=== PATIENT | female | born 1955 | race Asian ===

== ENCOUNTER → 2022-04-09 11:03 | Outpatient (CLI) | payer MEDICARE, SELFPAY ==
[2022-04-09 12:32] LABS: COVID19 -Nasal RAPID Negative (Negative)
== END ==
PROVIDERS: PCP Physician Assistant Medical; Visit Provider Surgery
DX: Z01.812 Encounter for preprocedural laboratory examination (principal); Z20.822 Contact with and (suspected) exposure to COVID-19
CPT/HCPCS: 87635; C9803

== ENCOUNTER 2022-04-12 11:47 | Day surgery (SDC) | payer MEDICARE, SELFPAY ==
--- NOTE | 2022-04-12 | PATH_ITS ---
[facility] Accession Number: [id number] . 01 Material submitted: . rectum - RECTUM MASS BIOPSY . 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 No lymphovascular or perineural invasion identified. No loss of mismatch repair proteins by immunohistochemical technique. See comment. MRV 04/16/2022 1430 Local . 01 Comment: Immunohistochemical staining for markers of microsatellite instability (MSI) shows no loss of MLH1, MSH2, MSH6, or PMS2, demonstrating no immunophenotypic evidence of underlying DNA mismatch repair gene mutation. Controls stain appropriately. If clinical concern warrants, additional testing by PCR for MSI could be considered for further evaluation. . As part of ongoing director of quality control, this case is also reviewed by Drs. Bethea and Felicity, who concur with the given interpretation. . Findings were called to Ms Magdaleno, medical radiation tech to , on 04/15/22 at 1630 hours. . 01 Electronically signed: . Patricia Montoya MD, Pathologist NPI- [id number] . 01 Gross description: . RECTUM MASS BIOPSY: Received in formalin are 3 fragment(s) of burgos, soft tissue measuring 0.3 x 0.3 x 0.2 cm to 0.2 x 0.2 x 0.1 cm submitted entirely in 1 cassette(s) /QBJ 04/14/2022 1028 Local . 01 Pathologist provided ICD-10: C20 . 01 CPT . 345957, P02317, Q16663 Specimen Comment: A courtesy copy of this report has been sent to [phone] Performed at: 01 [facility] [address] [place] [address], [place], [place] [id number] MD Erik Blveins MD Phone: [phone]
[2022-04-12 12:43] VITALS: BP 143/84; PULSE 96; RESP 16; TEMP 36.7; O2SAT 100; BMI 27.2
[2022-04-12] MEDS: SODIUM CHLORIDE 0.9% 1,000 ML 84 ML IV (13:07)
[2022-04-12 13:15] VITALS: BMI 27.2
--- NOTE | 2022-04-12 14:36 | PM.HP.1 ---
History of Present Illness History of Present Illness Date Patient Seen: 04/12/22 Time Patient Seen: 14:36 Chief complaint: Colonoscopy Narrative: I reviewed Dr. Dowd recent clinic note from February 02. No significant changes Patient History Medical History Rectal bleeding Family & Social History Social History: household members spouse Tobacco & Substance use: Smoking Status Never smoker alcohol intake never Substance Use Type does not use Meds Home Medications and Allergies Allergies Allergy/AdvReac Type Severity Reaction Status Date / Time No Known Drug Allergies Allergy Verified 04/12/22 12:40 Review of Systems Review of Systems ROS: Yes All systems reviewed with the patient and are negative except as otherwise documented Exam Vital Signs (past 8 hours): - 04/12/22 12:43 Temperature 98.1 F Pulse Rate 96 H Respiratory Rate 16 Blood Pressure 143/84 H Pulse Oximetry 100 Oxygen Delivery Method Room Air Oxygen Delivery Method Room Air Const General: cooperative HENMT Head: normal to inspection Eyes General: appearance normal, both eyes and all related structures Neck Neck: normal visual inspection Chest Chest: normal inspection of the chest Resp Effort & Inspection: normal respiratory effort Cardio Rate: regular rate GI Inspection: normal to inspection Skin General: no rashes or lesions noted Neuro General: patient alert and patient awake Extrem General: normal to inspection and no pedal edema Psych Appearance: grossly normal Assessment & Plan Assessment & Plan narrative: 66-year-old female with intermittent rectal bleeding. This has been associated with some altered bowel habit and mucus per rectum as well. Colonoscopy from 2018 revealed some diverticulosis and internal hemorrhoids. Repeat exam is pursued today to exclude inflammatory bowel disease as the source for her bleeding. Time Spent With Patient Critical Care time: I spent a total of [] minutes of critical care time on this patient's care today; this time is exclusive of procedural time.
--- NOTE | 2022-04-12 14:38 | PM.PREOP ---
Pre-operative Note COVID-19 COVID-19 status: Negative Result date/Date tested (Pos, Neg/Pending): 04/09/22 Criteria for continued procedure: Possibility delay results in more complex future surgery or treatment Interval Note History & Physical reviewed/Exam performed by Physician: Yes Changes to H&P: No ASA Class (for procedural sedation): II
--- NOTE | 2022-04-12 15:26 | P.OP.COLON_ITS ---
Operative Date/Time/Diagnoses Date of procedure: 04/12/22 Time of procedure: 15:27 Pre-op diagnosis: Rectal bleeding altered bowel habits Post-op diagnosis: same Procedure & Clinicians Study performed: Colonoscopy with biopsies and submucosal tattoo placement Same procedure as scheduled: Yes Indications: Altered bowel habit and rectal bleeding Surgeon: Franklyn Chou Procedure Notes SCOAP/Timeout: Done Procedure in detail: After the risks and benefits were explained, written and verbal informed consent was obtained. The patient was brought into the procedure room and placed into the left lateral decubitus position. Please see nurse dye colorist formulator notes for sedation details. Digital rectal examination was accomplished. The scope was introduced into the patient and advanced under direct visualization to the cecum as identified by the appendiceal orifice and ileocecal valve. The scope was slowly withdrawn to carefully examine the mucosa for any defects or lesions. Comprehensive imaging was accomplished throughout the rectum including the dentate line. The colon was decompressed, the scope was then removed from the patient who tolerated the procedure well. Pediatric colonoscope Bowel prep adequate Scope withdrawal time: 12 minutes Sedation minutes: 20 Complications: none Impression: Digital rectal exam revealed palpable mass lesion. The scope was introduced and uncovered a large rectal mass approximately 2 cm from the dentate line. This took up 2/3 of the luminal circumference. Was quite friable and the digital exam had induced a moderate amount of bleeding. I was able to navigate the scope past all the way to cecum. No additional colonic pathology was appreciated throughout. The lesion was biopsied. I estimate it was approximately 3 cm in length. A small Nalini ink tattoo was placed in the rectum just distal to the lesion. Multiple photographs were taken to help with surgical planning. Endoscopic diagnosis Rectal mass lesion Post-procedure Plan for aftercare: 1. Await histopathology 2. CT chest abdomen pelvis with IV contrast 3. CEA level 4. Surgery consultation 5. Oncology consultation Disposition: PACU
[2022-04-12 15:28] VITALS: BP 114/74; PULSE 101; RESP 14; TEMP 36.7; O2SAT 100
[2022-04-12 15:33] VITALS: BP 114/76; PULSE 98; RESP 16; O2SAT 100
[2022-04-12 15:38] VITALS: BP 114/79; PULSE 94; RESP 18; O2SAT 100
[2022-04-12 15:41] VITALS: BP 137/85; PULSE 92; RESP 16; TEMP 36.4; O2SAT 100
[2022-04-12 16:31] VITALS: BP 135/72; PULSE 77; RESP 16; TEMP 36.5; O2SAT 99
--- NOTE | 2022-04-12 16:39 | SUR.PHASEII ---
Dr Chou explained to , patient, and daughter the results of procedure and plan of care.
== END 2022-04-12 16:37 | disposition home or self-care (01) ==
PROVIDERS: PCP Physician Assistant Medical; Referring Provider Internal Medicine Gastroenterology; Visit Provider Internal Medicine Gastroenterology
PROC: 0DJD8ZZ Inspection of Lower Intestinal Tract, Via Natural or Artificial Opening Endoscopic (ICD-10-PCS; CPT 45378; principal; 2022-04-12 14:30)
DX: C20 Malignant neoplasm of rectum (principal); R19.4 Change in bowel habit
CPT/HCPCS: 45380; 45381; J2704

== ENCOUNTER → 2022-04-22 10:37 | Outpatient (CLI) | payer MEDICARE, SELFPAY ==
[2022-04-22 12:52] LABS: Carcinoembryonic Antigen 1.5 ng/mL (0.1-3.0)
== END ==
PROVIDERS: PCP Physician Assistant Medical; Referring Provider Internal Medicine Gastroenterology; Visit Provider Internal Medicine Gastroenterology
DX: K62.5 Hemorrhage of anus and rectum (principal); R14.0 Abdominal distension (gaseous); R19.4 Change in bowel habit
CPT/HCPCS: 36415; 82378

== ENCOUNTER → 2022-05-03 06:33 | Outpatient (CLI) | payer MEDICARE, SELFPAY ==
--- NOTE | 2022-05-03 06:36 | DI.CT.S_ITS ---
PROCEDURE: CT CHEST ABD PEL W CON INDICATIONS: Other specified diseases of anus and rectum TECHNIQUE: After the administration of oral and intravenous contrast, axial sections acquired from the supraclavicular neck to the pubic symphysis. Coronal and sagittal reformats were performed. For radiation dose reduction, the following was used: automated exposure control, adjustment of mA and/or kV according to patient size. COMPARISON: None. FINDINGS: Image quality: Excellent. CHEST: Lower Neck: No enlarged lymph nodes. Thyroid: Unremarkable. Axillae: No enlarged lymph nodes. Chest Wall: Unremarkable. Lungs and Airways: There is a 5 mm left upper lobe pulmonary nodule (series 3/image 69). No other suspicious pulmonary nodules or pulmonary mass lesions. No acute airspace opacities. Pleura: No pneumothorax or pleural effusions. Heart: Heart size is normal. No pericardial effusion. Thoracic Vessels: The aorta and pulmonary arteries demonstrate normal size. Mediastinum and Tanya: No enlarged lymph nodes. Esophagus: No wall thickening. No hiatal hernia. ABDOMEN: Liver: Unremarkable. Gallbladder: Unremarkable. Biliary ducts: Unremarkable. Pancreas: Unremarkable. Spleen: Unremarkable. Adrenal Glands: Unremarkable. Kidneys and Ureters: Unremarkable. Stomach and Bowel: Stomach, small bowel loops, and colon are overall normal in caliber and wall thickness. Questionable eccentric thickening of the rectosigmoid is noted (series 2/image 97). The appendix is thin walled and gas and contrast filled. Peritoneum: No abnormal intraperitoneal fluid. No free air. Ventral Wall: No hernia. Abdominal Nodes: No retroperitoneal or mesenteric adenopathy by size criteria. Vessels: Aorta and inferior vena cava are normal in size. PELVIS: Pelvic Organs: The uterus is likely surgically absent. The left ovary is unremarkable. There is an intermediate density 3.1 cm right ovarian cyst (series 2/image 89). Bladder: Unremarkable. Pelvic Nodes: No enlarged lymph nodes. Miscellaneous: No inguinal hernias are seen. Bones: Unremarkable. IMPRESSION: 1. 5 mm left upper lobe pulmonary nodule. No prior comparisons are available to determine the acuity of this finding. Pulmonary metastasis cannot be excluded but is considered unlikely given the lack of other pulmonary nodules or other evidence for metastatic disease. 6-12 month follow-up recommended. 2. Wall thickening of the rectosigmoid suspicious for neoplasm. No findings to suggest extension into the surrounding soft tissues or definite reshma or soft tissue metastasis. 3. Intermediate density 3.1 cm right ovarian cyst which is abnormal for size in a postmenopausal patient. Nonemergent pelvic ultrasound is recommended to further characterize this finding. Dictated by: Randa Kirk M.D. on 05/03/2022 at 15:49 Approved by: Randa Kirk M.D. on 05/03/2022 at 16:00
[2022-05-03 08:07] LABS: BUN Creatinine Ratio 22.2 (6-22); Blood Urea Nitrogen 14 mg/dL (7-17); Estimated Glomerular Filt Rate > 60 mL/min (>60)
== END ==
PROVIDERS: PCP Physician Assistant Medical; Referring Provider Internal Medicine Gastroenterology; Visit Provider Internal Medicine Gastroenterology
DX: K62.89 Other specified diseases of anus and rectum (principal); R91.1 Solitary pulmonary nodule; N83.201 Unspecified ovarian cyst, right side
CPT/HCPCS: 36415; 71260; 74177; 82565; 84520; Q9967